=== PATIENT | male | born 2005 | race Caucasian/White ===

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

== ENCOUNTER 2023-06-22 14:02 | Outpatient (CLI) | payer BC | END 2023-06-22 14:03 | disposition home or self-care (01) | LOC: CSHRAD 14:02 | PROVIDERS: ATTEND Family Medicine | DX: R05.9 Cough, unspecified (principal) | CPT/HCPCS: 71046 ==